=== PATIENT | female | born 2000 | race Hispanic/Latino ===

== ENCOUNTER 2018-02-12 16:46 | Emergency (ER) | payer OTHER, SELFPAY ==
[~2018-02-12] VITALS: Ht 147.3 cm; Wt 52.7 kg
[2018-02-12 16:47] VITALS: BP 122/83
[2018-02-12] MEDS ORDERED: bcp PO (16:54)
[2018-02-12] MEDS ORDERED: ACYC400T PO (17:50)
[2018-02-12] MEDS ORDERED: PRED20TA PO (17:50)
[2018-02-17 00:31] LABS: HSV-1 DNA Negative (Negative); HSV-2 DNA Negative (Negative); Lyme Disease IgG/IgM Antibodie <0.91 ISR (0.00-0.90); Lyme Disease IgM Ab Quantitati <0.80 index (0.00-0.79)
== END 2018-02-12 18:00 | disposition home or self-care (01) ==
LOC: M ED 16:46
DX: G51.0 Bell's palsy (principal); Z79.3 Long term (current) use of hormonal contraceptives